=== PATIENT | female | born 1995 | race Two or more races ===

== ENCOUNTER 2019-01-27 06:42 | Inpatient (IN) | payer OTHER ==
[~2019-01-27] VITALS: Ht 160 cm; Wt 68.0 kg
[~2019-01-27 06:42] MED LIST: PNEU16DI2; PRENATAL 19 TA1 EACH PO
== END 2019-01-29 16:59 | disposition home or self-care (01) | DRG 807 ==
LOC: OB/GYN 06:42 → LDR 06:42 → OB/GYN 21:51
PROVIDERS: ADMIT Obstetrics & Gynecology
PROC: 10E0XZZ Delivery of Products of Conception, External Approach (ICD-10-PCS; principal; 2019-01-27)
PROC: 10907ZC Drainage of Amniotic Fluid, Therapeutic from Products of Conception, Via Natural or Artificial Opening (ICD-10-PCS; 2019-01-27)
PROC: 3E033VJ Introduction of Other Hormone into Peripheral Vein, Percutaneous Approach (ICD-10-PCS; 2019-01-27)
PROC: 4A1HXCZ Monitoring of Products of Conception, Cardiac Rate, External Approach (ICD-10-PCS; 2019-01-27)
DX: O80 Encounter for full-term uncomplicated delivery (principal); Z37.0 Single live birth; Z3A.39 39 weeks gestation of pregnancy

== ENCOUNTER → 2019-02-08 | Emergency (ER) | payer OTHER ==
[~2019-02-08] VITALS: Ht 152.4 cm; Wt 61.7 kg
== END | disposition left against medical advice (07) ==
LOC: ER 10:37 → EMR PED 10:54 → ER 10:54
DX: Z53.20 Procedure and treatment not carried out because of patient's decision for unspecified reasons (principal)

== ENCOUNTER 2024-06-30 09:22 | Inpatient (IN) | payer OTHER ==
[2024-06-30] VITALS (14 sets, daily range): BP systolic 102–135; BP diastolic 53–86
[~2024-06-30] VITALS: Ht 160 cm; Wt 77.1 kg
[2024-06-30 10:22] LABS: URINE APPEARANCE Clear; URINE BILIRRUBIN Negative (NEGATIVE); URINE BLOOD Negative; URINE COLOR Yellow; URINE GLUCOSE Negative (NEGATIVE); URINE KETONE Negative (NEGATIVE); URINE LEUKOCYTE Small; URINE NITRATE Negative; URINE PROTEIN Negative (NEGATIVE); URINE UROBILINOGEN 0.2 E.U./dl
[2024-06-30 10:26] LABS: URINE BACTERIA 871.3 uL (0.0-1933); URINE EPITHELIAL CELLS 51.4 uL (0.0-38.8); URINE WBC 33.7 uL (0.0-23.2)
[2024-06-30] MEDS ORDERED: PRENATABS RX T1 EACH PO (10:29)
[2024-06-30] MEDS ORDERED: VALTREX1000 MG PO (10:29)
[2024-06-30] MEDS ORDERED: RINGERS SOLUTION,LACTATED 1,000 ML IV SCH (10:30)
[2024-06-30] MEDS ORDERED: OXYTOCIN 20 UNITS/500ML RL PIGGYBAG IV SCH (10:30)
[2024-06-30 10:35] LABS: HEMATOCRIT 33.1 % (36.0-45.00); HEMOGLOBIN 11.1 g/dL (12.0-15.00); MEAN CELL VOLUME 86.3 fL (80.00-100.00); MEAN CORPUSCULAR HGB CONC 33.6 g/dl (32.0-36.0); PLATELET COUNT 173 K/uL (150-450); RED BLOOD COUNT 3.84 M/uL (4.00-6.00); RED CELL DISTRIBUTION WIDTH 14.1 % (11.5-14.5)
[2024-06-30 10:42] LABS: URINE CAST 0.29 uL (0.0-1.40); URINE RBC 0.8 uL (0.0-20.8)
[2024-06-30 10:54] LABS: INR < 0.93; PARTIAL THROMBOPLASTIN TIME 30.2 SECONDS (22.0-34.0)
[2024-06-30] MEDS ORDERED: MEPERIDINE HCL/PF 25 MG/ML VIAL IV STA (16:59)
[2024-06-30] MEDS ORDERED: PROMETHAZINE HCL 25 MG/ML AMPUL IV STA (16:59)
[2024-06-30] MEDS ORDERED: PROMETHAZINE HCL 25 MG/ML AMPUL ONE (17:11)
[2024-06-30] MEDS ORDERED: OXYTOCIN 20 UNITS/1000ML RL PIGGYBAG IV ONE (20:13)
[2024-06-30] MEDS ORDERED: CHLORHEXIDINE GLUCONATE 120 ML BOTTLE TOP ONE ×2 (20:13→21:15)
[2024-06-30] MEDS ORDERED: LIDOCAINE HCL 1% 10ML VIAL ONE (20:13)
[2024-06-30] MEDS ORDERED: ERYTHROMYCIN BASE OPHT 1GM EACH TUBE OP ONE ×2 (20:13→21:15)
[2024-06-30] MEDS ORDERED: METHYLERGONOVINE MALEATE 0.2 MG/ML AMPUL ONE (20:26)
[2024-06-30] MEDS ORDERED: OXYTOCIN 1,000 ML IV SCH ×2 (21:15→21:30)
[2024-06-30] MEDS ORDERED: ACETAMINOPHEN 500 MG GEL..CAP PO PRN (21:30)
[2024-06-30] MEDS ORDERED: METHYLERGONOVINE MALEATE 0.2 MG/ML AMPUL IM ONE (21:30)
[2024-07-01 00:39] LABS: HEMATOCRIT 32.9 % (36.0-45.00); MEAN CELL VOLUME 84.7 fL (80.00-100.00); MEAN CORPUSCULAR HEMOGLOBIN 28.5 pg (27.00-32.0); MEAN CORPUSCULAR HGB CONC 33.7 g/dl (32.0-36.0); PLATELET COUNT 150 K/uL (150-450); RED BLOOD COUNT 3.89 M/uL (4.00-6.00); RED CELL DISTRIBUTION WIDTH 14.1 % (11.5-14.5)
[2024-07-01 00:41] LABS: HEMOGLOBIN 11.1 g/dL (12.0-15.00)
[2024-07-01 04:19] VITALS: BP 129/72
[2024-07-01 07:35] VITALS: BP 125/68
[2024-07-01] MEDS ORDERED: PNV,CALCIUM 72/IRON/FOLIC ACID 1 TAB TABLET PO SCH (09:00)
[2024-07-01 11:48] VITALS: BP 129/73
[2024-07-01 15:35] VITALS: BP 117/64
[2024-07-01 17:13] VITALS: BP 130/69
[2024-07-02 00:27] VITALS: BP 119/56
[2024-07-02 08:15] VITALS: BP 131/83
== END 2024-07-02 18:36 | disposition home or self-care (01) | DRG 807 ==
LOC: OB/GYN 09:22 → LDR 09:22 → OB/GYN 07-01 12:23
PROVIDERS: ADMIT Obstetrics & Gynecology; ATTEND Obstetrics & Gynecology
PROC: 10E0XZZ Delivery of Products of Conception, External Approach (ICD-10-PCS; principal; 2024-06-30)
PROC: 4A1HXCZ Monitoring of Products of Conception, Cardiac Rate, External Approach (ICD-10-PCS; 2024-06-30)
DX: O80 Encounter for full-term uncomplicated delivery (principal); Z37.0 Single live birth; Z3A.39 39 weeks gestation of pregnancy